=== PATIENT | male | born 1995 | race African-American/Black ===

== ENCOUNTER 2020-12-07 09:10 | Emergency (ER) | payer OTHER, SELFPAY ==
[2020-12-07 09:10] VITALS: BP 138/85; PULSE 76; RESP 16; TEMP 36.3; O2SAT 97; BMI 41.4
--- NOTE | 2020-12-07 09:20 | CT_ITS ---
STUDY: CT ABDOMEN AND PELVIS WITHOUT CONTRAST REASON FOR EXAM: Male, 25 years old. LEFT FLANK PAIN X 5 DAYS RADIATION DOSAGE (If Supplied By Facility): CTDIvol = ( 14.80 ) mGy, DLP = ( 800.05 ) mGycm TECHNIQUE: Transaxial images were obtained from the dome of the diaphragm to the symphysis pubis without oral contrast, and without intravenous contrast. Sagittal and coronal images were reconstructed. Individualized dose optimization techniques were used for this CT. COMPARISON: None. FINDINGS: The visualized lung bases are unremarkable. The visualized portions of the heart are within normal limits. There is decreased attenuation of the liver consistent with steatosis. Normal gallbladder and extrahepatic biliary system. Normal spleen. Normal pancreas. Normal bilateral adrenal glands. Normal right kidney. Normal left kidney. Normal visualized stomach. Normal small intestine. There is a 3.5 cm x 3 cm diverticulum in the midportion of the sigmoid colon. The appendix is visualized and appears normal. Normal abdominal aorta. Normal inferior vena cava. Normal retroperitoneum. Normal urinary bladder. Normal abdominal wall. Normal osseous structures. CT/Abdomen/Pelvis without Cont IMPRESSION: Diffuse fatty infiltration of the liver. Prominent sigmoid diverticulum. Electronically Signed: Natalio Burton, at 10:50 EST , Service support ,
[2020-12-07 09:44] LABS: Absolute Neutrophil Count 6.8 X10^3/uL (2.0-7.7); Basophil# 0.02 X10^3/uL; Basophil% 0.2 % (0-1); Eosinophil# 0.25 X10^3/uL; Eosinophils% 2.2 % (0-5); Hematocrit 46.5 % (40-54); Hemoglobin 15.5 g/dL (13.0-16.5); Lymphocyte % 27.4 % (19-41); Mean Corp Hgb Conc 33.3 g/dL (32-36); Mean Corpuscular Hgb 27.9 pg (27.0-32.0); Mean Corpuscular Volume 83.8 fL (80-94); Mean Platelet Vol. 9.7 fl (6.2-12.0); Monocyte# 1.05 X10^3/uL; Monocyte% 9.3 % (0-10); NRBC Flagged by Analyzer 0 % (0-5); Neutrophil # 6.83 X10^3/uL (2.7-7.7); Neutrophil % 60.4 % (47-70); Platelet Count 259 K/mm3 (150-450); RBC Distribution Width CV 13.5 % (11.6-14.6); RBC Distribution Width SD 41.7 fl (35.1-43.9); Red Blood Count 5.55 M/mm3 (4.6-6.2); White Blood Count 11.3 K/mm3 (4.4-11.0)
[2020-12-07] MEDS: 0.9% Normal Saline 1,000 ML 250 ML IV (09:45)
[2020-12-07] MEDS: Ketorolac 30 MG/ML Syringe IV (09:46)
[2020-12-07 09:49] LABS: Red Blood Cells-Urine 0 SEEN /hpf (0-5)
[2020-12-07 09:55] LABS: Color, Urine Yellow (Yellow); Glucose, Dipstick Normal (Normal); Ketone-Dipstick Negative (Negative); Leukocyte Esterase-Dipstick 25 /ul (Negative); Nitrite-Dipstick Negative (Negative); Occult Blood-Urine Negative /ul (Negative); Protein-Dipstick Negative (Negative); Urine Bilirubin Dipstick Negative (Negative); Urine Clarity Sl. Cloudy (Clear); Urine Urobilinogen Normal (Normal)
[2020-12-07 09:59] LABS: Anion Gap 0 (5-15); BUN 13 mg/dL (7-18); BUN/Creat Ratio 16.7 RATIO (10-20); Calcium,Total 8.7 mg/dL (8.5-10.1); Chloride 112 mmol/L (98-107); Creatinine, Serum 0.78 mg/dL (0.70-1.30); EST Glomerular Filtration Rate 126 mL/min (>60); Est Glom Filt Rate - Afr Amer 153 mL/min (>60); Estimated Creatinine Clearance 160.77 ml/min; Glucose 94 mg/dL (74-106); Sodium Level 140 mmol/L (136-145)
[2020-12-07 10:00] LABS: Bacteria 1+ /hpf (None Seen); Mucous, Urine 1+ /hpf (<or=2+); Squamous Epithelial Cells - UA 0-5 SEEN /hpf (0-5); White Blood Cells 0-5 SEEN /hpf (0-5)
--- NOTE | 2020-12-07 10:07 | ED.VISSUMM ---
- ER Visit Summary Date of Service: 12/07/20 Chief Complaint: Left flank pain History of Present Illness: The patient is a 25 M who presents with left flank pain that has been getting worse over the past 5 days. Patient states pain became worse today. Patient describes the pain as sharp and throbbing. Patient states the pain is localized to the left flank. Patient states the pain is worse with certain movements. Patient states the pain is better with certain positions such as laying flat. Patient denies any dysuria or hematuria. Patient denies any nausea or vomiting. Patient denies any fevers or chills. Patient denies any history of kidney stones. Physical Examination: Vital signs are stable. Patient is afebrile. Patient is in no acute distress. Oral mucosa is pink and moist. Neck is supple. Trachea is midline. There is no JVD. Heart was regular rate and rhythm. Lungs are clear and equal bilaterally. Abdomen is soft. Bowel sounds are normal. There is no tenderness. Musculoskeletal exam showed tenderness over the left costovertebral angle. There is no midline tenderness. There is no right CVA tenderness. There is no calf tenderness or edema. Cranial nerves II through XII are intact. There are no focal motor or sensory deficits noted. Test Results: CBC and comprehensive metabolic profile were obtained and were within normal limits. Urinalysis does not show any evidence of urinary tract infection. CT scan of the abdomen and pelvis was obtained. There is no acute intra-abdominal abnormality noted. This was interpreted by the radiologist and reviewed by myself. Emergency Department Course and Treatment: Patient was given IV fluids and Toradol here. Patient is feeling better on reevaluation. Patient was instructed to take ibuprofen as needed for pain. Patient was instructed to use ice to the area. Patient was instructed to follow-up with his primary care physician in 5 to 7 days. Patient understood and was agreeable with the plan. All questions were answered. Disposition: Discharge home Impression: Left flank pain This note was generated with [employer] dictation software. It may contain incorrect words, spelling, and punctuation that were not noted in review of the chart prior to signing ED Disposition - Plan for ED Patient: Disposition: Home or Assisted Living Diagnosis: Left flank pain Instructions: ED Flank Pain, Uncertain Cause Referrals: Delfino Zamarripa MD [Primary Care Provider] - 5-7 Days
[2020-12-07 11:12] VITALS: BP 116/74; PULSE 59; RESP 16; O2SAT 98
== END 2020-12-07 11:12 | disposition home or self-care (01) ==
PROVIDERS: Emergency Provider Emergency Medicine; PCP Pediatrics
DX: R10.9 Unspecified abdominal pain (principal); F17.200 Nicotine dependence, unspecified, uncomplicated
CPT/HCPCS: 74176; 80048; 81001; 85025; 96374; 99283; J7030; A4216

== ENCOUNTER 2024-09-26 14:18 | Emergency (ER) | payer OTHER, SELFPAY ==
[2024-09-26 14:19] VITALS: TEMP 36.6; BMI 45.4
[2024-09-26 14:23] VITALS: BP 130/90; PULSE 100; RESP 18; O2SAT 97
--- NOTE | 2024-09-26 14:45 | ED.VIS.DYS ---
HPI History of Present Illness Chief Complaint: Cold Sx Narrative Narrative: Chief complaint and HPI: Cold/flulike symptoms. 29-year-old male with no significant past medical history presents for COVID testing. Patient states that their family member was recently diagnosed with COVID-19 infection and on Paxlovid. The patient started to develop cold/flulike symptoms on Thursday. Patient endorses intermittent headache, body aches, nasal congestion/rhinorrhea, sore throat, cough. His daughter developed symptoms today. Denies any fever, shortness of breath, chest pain, abdominal pain, diarrhea. Did have 1 episode of emesis yesterday. Patient states that his work requires COVID testing which is why he presents today. He has been using [id number] medication. Review of systems: See HPI Medications: As listed on the chart Allergies: As listed on the chart PFSH: Per chart Vital signs: As listed on the chart. Reviewed. Physical exam: Gen: A&O x3, NAD, nontoxic-appearing Head: Normocephalic, atraumatic Eyes: No sclera icterus, conjunctiva clear, PERRL, EOMI ENT: TMs clear BL, moist mucous membranes, posterior oropharynx unremarkable, uvula midline, tonsils not enlarged, no tonsillar exudates Neck: Trachea midline, No JVD, Full ROM, No meningismus CV: RRR, no murmurs, no peripheral edema Resp: Lungs CTA BL, no w/r/c, + dry cough GI: Abd soft, non-distended, non-tender, no r/r/g Musc: Full ROM, no deformity Skin: Warm, dry, no rash Neuro: Alert, oriented, grossly intact, sensation intact Psych: Cooperative, appropriate mood and affect PFS PFS Allergy/AdvReac Type Severity Reaction Status Date / Time shellfish derived Allergy Swelling Verified 12/07/20 09:12 Social History Smoking Status: Current some day smoker EXAM Physical Exam Const Vital Signs: 09/26/24 14:19 09/26/24 14:23 Temperature 97.8 F Temperature Source Temporal Pulse Rate 100 Respiratory Rate 18 Blood Pressure 130/90 H Blood Pressure Mean 103 Pulse Ox 97 MDM MDM MDM Narrative Medical decision making narrative: 29-year-old male with recent exposure to COVID-19 presents for evaluation of cold/flulike symptoms and COVID-19 testing. See physical exam findings. Patient's symptoms are likely secondary to a viral etiology including COVID-19, influenza, common cold, RSV. COVID testing ordered. No further laboratory or imaging workup needed. Patient is comfortable looking up his results at home. Patient is stable to discharge home. He was educated on symptom control with [id number] medication. Follow-up with his primary care physician. Was given a work excuse. Return precautions explained Impression: 1. Viral syndrome 2. Suspect COVID-19 infection with COVID-19 exposure Discharge Plan Triage Chief Complaint: Cold Sx ED Provider: Diego Deluca Dx/Rx/DC Orders Primary Care Provider: Delfino Zamarripa Referrals: Delfino Zamarripa MD [Primary Care Provider] - Print Language: Turkish
== END 2024-09-26 15:55 | disposition home or self-care (01) ==
LOC: ED 15:02
PROVIDERS: Emergency Provider Surgery; Visit Provider Surgery
DX: B34.9 Viral infection, unspecified (principal); J34.89 Other specified disorders of nose and nasal sinuses; R09.81 Nasal congestion; R51.9 Headache, unspecified; M79.10 Myalgia, unspecified site; J02.9 Acute pharyngitis, unspecified; R05.9 Cough, unspecified; Z20.822 Contact with and (suspected) exposure to COVID-19; F17.200 Nicotine dependence, unspecified, uncomplicated
CPT/HCPCS: 87631; 99283